=== PATIENT | female | born 1985 | race Caucasian/White ===

== ENCOUNTER 2021-12-04 10:43 | Emergency (ER) | payer OTHER, SELFPAY ==
[2021-12-04 11:14] VITALS: BP 126/79; PULSE 79; RESP 16; TEMP 37.1; O2SAT 97; BMI 21.1
--- NOTE | 2021-12-04 13:49 | ED.NURSE ---
Exam per Janny.
--- NOTE | 2021-12-04 17:05 | ED_ITS ---
HPI - Wound/Laceration General Date Seen: 12/04/21 Chief Complaint: Laceration/Wound Stated Complaint: Lac left index finger Time Seen by Provider: 12/04/21 13:31 Source: patient Mode of arrival: ambulatory Limitations: no limitations History of Present Illness HPI narrative: Patient is a very nice 36-year-old female who suffered a laceration to her non dominant hand, on her 2nd finger. This occurred while she was out working in [place]. She cut it with small knife. Was bleeding a fair bit so she thought she needs stitches she came in here to be seen. Her last tetanus was updated 6 years ago she has no other immunosuppressive illnesses or issues. Denies any numbness tingling or weakness associated with the common unfortunately due to the dizziness of the ER she had to wait 3 hours to be seen. Related Data Home Medications Medication Instructions Recorded Confirmed alprazolam 0.25 mg tablet (Xanax) 0.25 mg PO TID PRN 10/29/21 desogestrel 0.15 mg-ethinyl 1 tab PO QDAY 10/29/21 estradiol 0.03 mg tablet (Isibloom) Previous Rx's Medication Instructions Recorded bupropion HCl 300 mg 24 hr tablet, 300 mg PO QAM #30 tabs 10/05/21 extended release escitalopram oxalate 10 mg tablet 10 mg PO QDAY #30 tabs 11/29/21 (Lexapro) Allergies Allergy/AdvReac Type Severity Reaction Status Date / Time No Known Drug Allergies Allergy Verified 12/04/21 11:14 Review of Systems Status of ROS: Reports: 6 or more systems reviewed and unremarkable except as noted in History and below PFSH PFSH Social History Smoking Status: Never smoker Do you use any of these nicotine containing products: None Second hand tobacco smoke exposure: No How often do you have a drink containing alcohol: never How often do you have six or more drinks on one occasion: Never AUDIT-C Alcohol total score: 0 Non-prescribed substance use: denies use service: No Exam Narrative: Exam Narrative: On examination there is a flap-type laceration of approximately 3 cm located on lateral side or radial side of for left 2nd finger at the PIP joint. She is able to flex and extend her PIP joint through full range of motion, sensation distal this is normal as is cap refill. No other issue is noted. It was bleeding a fair bit. Blood pressure did stop this. Const: Vital Signs, click to edit/add: Vital Signs - 24 hr 12/04/21 11:14 Temperature 98.7 F Pulse Rate [Pulse Oximeter] 79 Respiratory Rate 16 Blood Pressure [Ri ght Upper Arm] 126/79 Pulse Oximetry 97 Oxygen Delivery Me thod Room Air Documenting provider has reviewed patient's vital signs: yes Course Vital Signs Vital signs: Initial Vital Signs Temperature 98.7 F 12/04/21 11:14 Temperature Source Temporal Artery Scan 12/04/21 11:14 Pulse Rate 79 12/04/21 11:14 Pulse Rhythm 12/04/21 11:14 Pulse Strength 3+ Normal 12/04/21 11:14 Respiratory Rate 16 12/04/21 11:14 Blood Pressure 126/79 12/04/21 11:14 Blood Pressure Mean 94 12/04/21 11:14 Blood Pressure Position Sitting 12/04/21 11:14 Pulse Oximetry 97 12/04/21 11:14 Oxygen Delivery Method 12/04/21 11:14 Vital Signs Temperature 98.7 F 12/04/21 11:14 Pulse Rate 79 12/04/21 11:14 Respiratory Rate 16 12/04/21 11:14 Blood Pressure 126/79 12/04/21 11:14 Pulse Oximetry 97 12/04/21 11:14 Oxygen Delivery Method 12/04/21 11:14 Temperature 98.7 F 12/04/21 11:14 Pulse Rate 79 12/04/21 11:14 Respiratory Rate 16 12/04/21 11:14 Blood Pressure 126/79 12/04/21 11:14 Pulse Oximetry 97 12/04/21 11:14 Oxygen Delivery Method 12/04/21 11:14 MDM - Wound/Laceration Differential Diagnosis Differential diagnosis: Likely laceration, abscess, abrasion and avulsion of skin Medical Records Attestation: I reviewed the patient's medical records. Lab Data Attestation: I reviewed the patient's lab results. Discharge Plan Discharge Clinical Impression: Laceration Patient Disposition: Home, Self-Care Condition: Improved Instructions: Finger Laceration (ED) Additional Instructions: Home, rest, use of splint for the next 3-4 days after the initial dressing comes off, bacitracin daily 2. I think daily bacitracin watching for signs infection or important, sutures should come out in 10 days, this can be done at her primary care clinic. There is 3 total stitches. Infection is redness, swelling, increasing pain, if this occurs, along with fever that he need to be seen, Prescriptions: No Action bupropion HCl 300 mg tablet extended release 24 hr 300 mg PO QAM Qty: 30 0RF desogestrel-ethinyl estradiol [Isibloom] 0.15-0.03 mg tablet 1 tab PO QDAY alprazolam [Xanax] 0.25 mg tablet 0.25 mg PO TID PRN escitalopram oxalate [Lexapro] 10 mg tablet 10 mg PO QDAY Qty: 30 0RF Follow Up/Referrals: Robbie Lewis MD [Primary Care Provider] - Stand Alone Forms: [facility] Info Instructions Procedures Laceration Laceration 1: Pre procedure diagnosis: Laceration till left 2nd finger Post procedure diagnosis: Laceration left 2nd finger Name of person performing procedure: Sam Soliman Site: hand Side (If applicable): left Size (cm): 3 Description: flap Depth: simple, single layer Local Anesthetic: lidocaine 1% Amount of anesthesia used (mL): 6 Pre-repair: wound explored, irrigated extensively and deep structures intact Skin layer closed with: nylon Size (cm): 4-0 Number of sutures: 3 Technique: simple, interrupted Wound cleansing: sterile water Estimated blood loss (if any): less than 5mls Conclusion: patient tolerated procedure
== END 2021-12-04 14:18 | disposition home or self-care (01) ==
PROVIDERS: Emergency Provider Family Medicine; PCP Family Medicine
DX: S61.211A Laceration without foreign body of left index finger without damage to nail, initial encounter (principal); W26.0XXA Contact with knife, initial encounter; Y93.89 Activity, other specified; Y92.73 Farm field as the place of occurrence of the external cause; Y99.9 Unspecified external cause status
CPT/HCPCS: 12002; 99283

== ENCOUNTER 2022-12-23 08:01 | Outpatient (CLI) | payer OTHER, SELFPAY ==
--- NOTE | 2022-12-23 08:15 | CRLHL7_ITS ---
For Patients: As a result of the Century Cures Act, medical imaging exams and procedure reports are released immediately into your electronic medical record. You may view this report before your referring provider. If you have questions, please contact your health care provider. INDICATION: First trimester scan, establish dates. COMPARISON: None. TECHNIQUE: Real-time banuelos-scale imaging of the pelvis was performed. FINDINGS: Sonographic imaging demonstrates a single living intrauterine gestation. The embryo demonstrates a regular cardiac rate measuring 174 beats per minute. The embryo`s crown-rump length measurement of 2.1 cm corresponds to a gestational age of 8 weeks 5 days with a sonographic due date of 07/30/2023. There is a normal-appearing yolk sac. There are no gross abnormalities noted within the embryo at this early state of development. The gestational sac has a normal appearance. There is a 1.8 x 0.5 x 1.1 cm perigestational hemorrhage. The amount of fluid within the sac appears appropriate for gestational age. The cervix is closed. Small anterior fibroid is present measuring 9 x 6 x 9 millimeters. The ovaries are of normal size. Corpus luteal cyst right ovary. There are no suspicious fluid collections noted in the cul-de-sac. IMPRESSION: Single living intrauterine with sonographic gestational age 8 weeks 5 days and sonographic due date of 07/30/2023. Left-sided subchorionic hemorrhage measures 1.8 x 0.5 x 1.1 cm. Dictated by Robbie Wilkerson MD @ 12/23/2022 9:26:06 AM (Electronically Signed)
== END 2022-12-23 08:02 | disposition home or self-care (01) ==
LOC: US 08:01
PROVIDERS: PCP Family Medicine; Visit Provider Advanced Practice Midwife
DX: O09.521 Supervision of elderly multigravida, first trimester (principal); Z3A.09 9 weeks gestation of pregnancy
CPT/HCPCS: 76817; 86592; 86703; 86704; 86706; 86762; 86787; 86803; 86850; 86900; 86901; 87086; 87340

== ENCOUNTER 2023-02-10 09:12 | Outpatient (CLI) | payer OTHER, SELFPAY | END 2023-02-10 09:13 | disposition home or self-care (01) | PROVIDERS: PCP Family Medicine; Visit Provider Advanced Practice Midwife | DX: Z34.92 Encounter for supervision of normal pregnancy, unspecified, second trimester (principal); Z3A.16 16 weeks gestation of pregnancy | CPT/HCPCS: 81511 ==

== ENCOUNTER 2023-03-10 15:46 | Outpatient (CLI) | payer OTHER, SELFPAY ==
[2023-03-10] VITALS (7 sets, daily range): BP systolic 111–164; BP diastolic 59–75; PULSE 87–102; RESP 18; TEMP 37.1; O2SAT 97–99
[2023-03-10] MEDS: LACTATED RINGERS 1000 ML 1,000 ML IV ×2 (16:25→17:34)
[2023-03-10] MEDS: ONDANSETRON 2 MG/ML inj 4 MG IVP (16:36)
[2023-03-10] MEDS: METOCLOPRAMIDE HCL 5 MG/ML INJ 10 MG IVP (18:01)
== END 2023-03-10 19:40 | disposition home or self-care (01) ==
LOC: OB OUT 15:46 → OB 15:47
PROVIDERS: PCP Family Medicine; Visit Provider Advanced Practice Midwife
DX: Z34.92 Encounter for supervision of normal pregnancy, unspecified, second trimester (principal); Z3A.20 20 weeks gestation of pregnancy
CPT/HCPCS: 99213; J2405; J2765; J7120

== ENCOUNTER 2023-05-06 08:46 | Outpatient (CLI) | payer OTHER, SELFPAY ==
--- OUTSIDE RECORDS SUMMARY | 2023-05-08 11:03 | XMS_ITS | Encounter Summary ---
Author Name Unknown Organization [facility] Address [address] [place] [id number] Care Team Providers Care Manager Product Name Role Phone Robbie Lewis MD Primary Care Provider Encounter Details Date Type Department Care Team (Latest Contact Info) Description 03/03/2023 Travel Social History Tobacco Use Types Packs/Day Years Used Date Smoking Tobacco: Never Assessed Adolescent Education Answer Date Record ed Getting School Help Needed Not on file 01/21 Estimated Date of Delivery Comme nts Yes 07/28/2023 Based on last me nstrual period of 10/21/2022 Sex and Gender Information Value Date Recorded Sex Assigned at Not on file Gender Identity Not on file Sexual Orientation Not on file documented as of this encounter Plan of Treatment Not on file documented as of this encounter Visit Diagnoses Not on filedocumented in this encounter Care Teams Manager Product Relationship Specialty Start Date End Date Robbie Lewis MD [facility] [address] [place] [address] PCP - General Family Medicine 01/21/23 documented as of this encounter
--- OUTSIDE RECORDS SUMMARY | 2023-05-08 11:03 | XMS_ITS | Encounter Summary ---
Author Name Unknown Organization [facility] Address [address] [place] [address] Care Team Providers Care Voice Writing Reporter Name Role Phone Robbie Lewis MD Primary Care Provider + [phone] Reason for Visit * Reason Comments Ultrasound L2-AMA Encounter Details Date Type Department Care Team (Late st Contact Info) Description 03/03/2023 10:45 AM CORRECTIONAL FACILITY PSYCHIATRIST Office Visit [facility] [place] [address] [place] [address] Ester Pryor APRN [facility] [address] [place] [address] Hortensia Mcdonald MD [address] [facility] [address] [place], [place] [id number] Choroid plexus cyst of fetus affecting care of mother, antepartum, single or unspecified fetus (Primary Dx); Multigravida of advanced maternal age in second trimester Social History Tobacco Use Types Packs/Day Years [...] on file documented as of this encounter Progress Notes * Hortensia Mcdonald MD - 03/03/2023 10:45 AM CST Please see Imaging tab under Chart Review for details of today's visit. Hortensia Mcdonald ECTIONAL FACILITY PSYCHIATRIST documented in this encounter Plan of Treatment Not on file documented as of this encounter Visit Diagnoses Diagnosis Choroid plexus cyst of fetus affecting care of mother, antepartum, single or unspecified fetus- Primary Multigravida of advanced maternal age in second trimester documented in this encounter Care Teams Voice Writing Reporter Relationship Specialty Start Date End Date Robbie Lewis MD [facility] [address] [address] PCP - General Family Medicine 01/21/23 documented as of this encounter
--- OUTSIDE RECORDS SUMMARY | 2023-05-08 11:03 | XMS_ITS | Clinical Summary ---
Author Name Unknown Organization [facility] Address [address] [place] [address] Care Team Providers Care Inner Tube Tuber Machine Operator Name Role Phone Robbie Lewis MD Primary Care Provider [phone] Encounters Date Type Department Care Team Description 03/03/2023 10:45 AM EQUIPMENT TECHNICIAN Office Visit [facility] [place] [address] [facility] [address] [place] [phone] Ester Macario APRN CNM Burn, Martina, MD Choroid plexus cyst of fetus affecting care of mother, antepartum, single or unspecified fetus (Primary Dx); Multigravida of advanced maternal age in second trimester 03/03/2023 10:15 AM EQUIPMENT TECHNICIAN - 03/03/2023 11:59 PM EQUIPMENT TECHNICIAN Hospital Encounter [facility] [address] [facility] [address] [place] [phone] Ester Macario APRN CNM Burn, Martina, MD related condition, antepartum Discharge Disposition: Home or Self Care 03/03/2023 Travel 02/24/2023 Travel 02/21/2023 PRE VISIT [facility] [address] [facility] [address] [place] [phone] Rosemary Rodriguez RN Ultrasound (L2-AMA) from Last 3 Months Social History Tobacco Use Types Packs/Day Years [...] on file Sexual Orientation Not on file Plan of Treatment Health Maintenance Due Date Last Done Comments ADVANCE CARE PLANNING 1986 ANNUAL REVIEW OF HM ORDERS 1986 GLUCOSE 1986 HEPATITIS B IMMUNIZATION (1 of 3 - 3-dose series) 1986 YEARLY PREVENTIVE VISIT 1986 HIV SCREENING 2001 HEPATITIS C SCREENING 2004 PAP 10/31/2007 DTAP/TDAP/TD IMMUNIZATION (1 - Tdap) 10/31/2011 MATERNAL SCREENING DISCUSSION 12/30/2022 PHQ-2 (once per calendar year) 2023 OBGCT (OB) 04/07/2023 INFLUENZA VACCINE Completed 12/23/2022, , 02/22/2021, Additional history exists COVID-19 Vaccine Completed 01/20/2023, , 07/19/2020, Additional history exists HPV IMMUNIZATION Aged Out No longer e ligible based on patient's age to complete this topic IPV IMMUNIZATION Aged Out No longer e ligible based on patient's age to complete this topic MENINGITIS IMMUNIZATION Aged Out No l onger eligible based on patient's age to complete this topic Pneumococcal Vaccine: Pediatrics (0 to 5 Years) and At-Risk Patients (6 to 64 Years) Aged Out No longer eligible based on patient's age to complete this topic RSV MONOCLONAL ANTIBODY Aged Out No l onger eligible based on patient's age to complete this topic RSV VACCINE ( & 60+) (No Doses Required) Completed Procedures Procedure Name Priority Date/Time Associated Diagnosis Comments [facility] US COMPREHENSIVE SINGLE Routine 03/03/2023 10:58 AM EQUIPMENT TECHNICIAN related condition, antepartum from Last 3 Months Results * [facility] US Comprehensive Single (03/03/2023 10:58 AM EQUIPMENT TECHNICIAN) Anatomical Region Laterality Modality Ultrasound 03/03/2023 10:1 9 AM EQUIPMENT TECHNICIAN Impressions 03/03/2023 11:43 AM EQUIPMENT TECHNICIAN IMPRESSION ----- 1. Newman intrauterine at 19w 0d gestational age here for evaluation of anatomy. 2. Right choroid plexus cyst was seen. 3. No anomalies commonly detected by ultrasound or other soft markers of aneuploidy were identified in the detailed anatomic survey within the limits of ultrasound. 4. Growth parameters and estimated weight were consistent with established dates. 5. The amniotic fluid volume appeared normal. 6. On transabdominal imaging the cervix appears long and closed. Narrative 03/03/2023 11:43 AM EQUIPMENT TECHNICIAN ?Comprehensive ----- Pat. Name: LORETO DIGGS ? Study Date: ??03/03/2023 10:19am Pat. NO: ??[id number] ?Referring ??: ESTER MACARIO Site: ??[facility] ? Print Cutter: Monisha Galarza RDMS : ??1985 ?Age: ?? 37 ----- INDICATION ----- Advanced Maternal Age--Multigravida. Low-risk NIPT METHOD ----- Transabdominal ultrasound examination. View: Sufficient ----- Newman . Number of fetuses: 1 DATING ----- ? Date ?Details ?Gest. age ?PATRICIA LMP ?10/21/2022 ?Cycle: regular cycle ?19 w + 0 d ? 07/28/2023 Prior assessment ? 12/23/2022 ? GA: 8 w + 5 d ?18 w + 5 d ? 07/30/2023 U/S ? 03/03/2023 ? based upon AC, BPD, Femur, HC ? 18 w + 6 d ? 07/29/2023 Assigned dating ?Dating performed on 03/03/2023, based on the LMP ? 19 w + 0 d ? 07/28/2023 GENERAL EVALUATION ----- Cardiac activity present. FHR 145 bpm. movements present. Presentation tranverse with head to maternal left. Placenta Bilobed placenta. Posterior with thin membrane connecting to the anterior placenta. Normal placental cord insertion into the posterior placenta. Umbilical cord Cord vessels: 3 vessel cord. Insertion site: normal insertion. Amniotic fluid Amount of AF: normal. MVP 3.7 cm. BIOMETRY ----- Main Biometry: BPD ?43.0 ?mm ? 19w 0d ?Hadlock OFD ?57.1 ?mm ? 18w 5d ?Nicolaides HC ?160.2 ?mm ?18w 6d ?Hadlock Cerebellum tr ?19.2 ? mm ?18w 4d ?Nicolaides AC ?141.0 ?mm ?19w 3d ?62% ?Hadlock Femur ?26.7 ? mm ?18w 1d ?Hadlock Humerus ?27.6 ?mm ? 18w 6d ?Lisandra Weight Calculation: EFW ? 261 ? g ? 37% ?Hadlock EFW (lb,oz) ? 0 lb 9 ?oz EFW by ?Hadlock ([id number]) Head / Face / Neck Biometry: Regional Flatbed Truck Driver ? 7.0 ? mm CM ?3.4 ? mm Nasal bone ? 5.8 ? mm Nuchal fold ? 3.8 ? mm ANATOMY ----- Head / Neck ? Right choroid plexus: cyst The following structures appear normal: Head / Neck ? Cranium. Head size. Head shape. Lateral ventricles. Midline falx. Cavum septi pellucidi. Cerebellum. Cisterna magna. Parenchyma. Thalami. ? Vermis. ? Neck. Nuchal fold. Face ? Lips. Profile. Nose. Maxilla. Mandible. Orbits. Lens. Heart / Thorax ?4-chamber view. RVOT view. LVOT view. Situs. Aortic arch view. Bicaval view. Ductal arch view. Superior vena cava. Inferior vena cava. 3-vessel ? view. 5-aelrfg-lbtheui view. Cardiac position. Cardiac size. Cardiac rhythm. ? Right lung. Left lung. Diaphragm. Abdomen ? Abdominal wall. Cord insertion. Stomach. Kidneys. Bladder. Liver. Bowel. Genitals. Spine ?Cervical spine. Thoracic spine. Lumbar spine. Sacral spine. Extremities / Skeleton ?Right arm. Right hand. Left arm. Left hand. Right leg. Right foot. Left leg. Left foot. Gender: male. MATERNAL STRUCTURES ----- Cervix ?Visualized ? Appearance: Appears Closed ? Approach - Transabdominal: Cervical length 40.8 mm Right Ovary ?Visualized Left Ovary ?Visualized RECOMMENDATION ----- Thank-you for referring your patient for a comprehensive ultrasound. I discussed the findings on today's ultrasound with the patient. I reviewed the limitations of ultrasound both in detecting aneuploidy and structural abnormalities. Ultrasound can routinely detect 80-90% of structural abnormalities. She had low risk cell free DNA for genetic screening this . I discussed that on today?s ultrasound a choroid plexus cyst (CEMENT SPRAYER HELPER) was noted. We discussed that CPCs are seen in 1-2% of all pregnancies in the second trimester and can be single or multiple, unilateral or bilateral and are often small (<1cm) in diameter. In the absence of other anatomic abnormalities or soft markers in conjunction with her low risk cell free DNA result this is considered to be a normal finding. Finally, we discussed that CPCs are not considered a structural or functional brain abnormality and therefore have no impact on structural brain development or function. Specifically, there is no association with neurodevelopmental outcomes. Almost all resolve by 28 weeks and they do not require any follow-up or postnatally. Further ultrasound studies as clinically indicated. Return to primary provider for continued care. If you have questions regarding today's evaluation or if we can be of further service, please contact the [facility]. anomalies may be present but not detected I spent a total of 15 minutes on the date of this encounter including preparing to see the patient (reviewing medical records/tests), counseling and discussing the plan of care, documenting the visit in the electronic medical record, and communicating with other health health care / medical job titles and/or care coordination. Procedure Note Hortensia Mcdonald MD - 03/03/2023 Comprehensive ----- Pat. Name: LORETO DIGGS Study Date: 03/03/2023 10:19am Pat. NO: [id number] Referring MD: ESTER MACARIO Site: [facility] Print Cutter: Monisha Galarza RDMS : 1985 Age: 37 ----- INDICATION ----- Advanced Maternal Age--Multigravida. Low-risk NIPT METHOD ----- Transabdominal ultrasound examination. View: Sufficient ----- Newman . Number of fetuses: 1 DATING ----- DateDetailsGest. age PATRICIA LMP 10/21/2022ycle: regular cycle19 w + 0 d 07/28/2023 Prior assessment 12/23/2022 GA: 8 w +5 d18 w + 5 d 07/30/2023 U/S 3based upon AC, BPD, Femur, HC18 w + 6 d 07/29/2023 Assigned dating Dating performed on 03/03/2023, based onthe LMP 19 w +0 d 07/28/2023 GENERAL EVALUATION ----- Cardiac activity present. FHR 145 bpm. movements present. Presentation tranverse with head to maternal left. Placenta Bilobed placenta. Posterior with thin membrane connecting to theanterior placenta. Normal placental cord insertion into the posteriorplacenta. Umbilical cord Cord vessels: 3 vessel cord. Insertion site: normalinsertion. Amniotic fluid Amount of AF: normal. MVP 3.7 cm. BIOMETRY ----- Main Biometry: BPD 43.0 mm19w 0d Hadlock OFD 57.1 mm18w 5d Nicolaides HC 160.2 mm18w 6d Hadlock Cerebellum tr 19.2 mm18w 4d Nicolaides AC 141.0 mm19w 3d 62% Hadlock Femur 26.7 mm18w 1d Hadlock Humerus 27.6 mm18w 6d Lisadnra Weight Calculation: EFW 261 g37% Hadlock EFW (lb,oz) 0 lb 9 oz EFW by Hadlock ([id number]) Head / Face / Neck Biometry: Regional Flatbed Truck Driver 7.0 mm CM 3.4 mm Nasal bone 5.8 mm Nuchal fold 3.8 mm ANATOMY ----- Head / Neck Right choroid plexus: cyst The following structures appear normal: Head / Neck Cranium. Head size. Head shape.Lateral ventricles. Midline falx. Cavum septi pellucidi. Cerebellum.Cisterna magna. Parenchyma. Thalami. Vermis. Neck. Nuchal fold. Face Lips. Profile. Nose. Maxilla.Mandible. Orbits. Lens. Heart / Thorax 4-chamber view. RVOT view. LVOT view.Situs. Aortic arch view. Bicaval view. Ductal arch view. Superior venacava. Inferior vena cava. 3-vessel view. 5-nmhvzh-vbolgtb view.Cardiac position. Cardiac size. Cardiac rhythm. Right lung. Left lung.Diaphragm. Abdomen Abdominal wall. Cord insertion.Stomach. Kidneys. Bladder. Liver. Bowel. Genitals. Spine Cervical spine. Thoracic spine.Lumbar spine. Sacral spine. Extremities / Skeleton Right arm. Right hand. Left arm. Lefthand. Right leg. Right foot. Left leg. Left foot. Gender: male. MATERNAL STRUCTURES ----- Cervix Visualized Appearance: Appears Closed Approach - Transabdominal:Cervical length 40.8 mm Right Ovary Visualized Left Ovary Visualized RECOMMENDATION ----- Thank-you for referring your patient for a comprehensive ultrasound. I discussed the findings on today's ultrasound with the patient. Ireviewed the limitations of ultrasound both in detecting aneuploidy andstructural abnormalities. Ultrasound can routinely detect 80-90% of structural abnormalities. She had low riskcell free DNA for genetic screening this . I discussed that on today?s ultrasound a choroid plexus cyst (CEMENT SPRAYER HELPER) wasnoted. We discussed that CPCs are seen in 1-2% of all pregnancies in thesecond trimester and can be single or multiple, unilateral or bilateral and are often small(<1cm) in diameter. In the absence of other anatomic abnormalities or softmarkers in conjunction with her low risk cell free DNA result this is considered to be a normalfinding. Finally, we discussed that CPCs are not considered a structuralor functional brain abnormality and therefore have no impact on structural brain developmentor function. Specifically, there is no association with neurodevelopmentaloutcomes. Almost all resolve by 28 weeks and they do not require any follow-up orpostnatally. Further ultrasound studies as clinically indicated. Return to primary provider for continued care. If you have questions regarding today's evaluation or if we can be offurther service, please contact the [facility]. anomalies may be present but not detected I spent a total of 15 minutes on the date of this encounter includingpreparing to see the patient (reviewing medical records/tests), counselingand discussing the plan of care, documenting the visit in the electronic medical record, andcommunicating with other health health care / medical job titles and/or carecoordination. IMPRESSION ----- 1. Newman intrauterine at 19w 0d gestational age here forevaluation of anatomy. 2. Right choroid plexus cyst was seen. 3. No anomalies commonly detected by ultrasound or other softmarkers of aneuploidy were identified in the detailed anatomicsurvey within the limits of ultrasound. 4. Growth parameters and estimated weight were consistent withestablished dates. 5. The amniotic fluid volume appeared normal. 6. On transabdominal imaging the cervix appears long and closed. Ester Macario APRN CNM IMG MFM US [facility] from Last 3 Months Care Teams Inner Tube Tuber Machine Operator Relationship Specialty Start Date End Date Robbie Lewis MD [facility] [address]. [place] [address] PCP - General Family Medicine 01/21/23
--- OUTSIDE RECORDS SUMMARY | 2023-05-08 11:03 | XMS_ITS | Encounter Summary ---
Author Name Unknown Organization [facility] Address [address] [place] [address] Care Team Providers Care Insurance Processor Name Role Phone Robbie Lewis MD Primary Care Provider + [phone] Reason for Visit * Reason Comments Ultrasound L2-AMA Encounter Details Date Type Department Care Team (Late st Contact Info) Description 02/21/2023 PRE VISIT [facility] Maternal Medicine Center [place] [address] [facility] [address] [place] [address] Rosemary Rodriguez, RN Ultrasound (L2-AMA) Social History Tobacco Use Types Packs/Day Years [...] on filedocumented in this encounter Care Teams Insurance Processor Relationship Specialty Start Date End Date Robbie Lewis MD [facility] [address] [address] PCP - General Family Medicine 01/21/23 documented as of this encounter
--- OUTSIDE RECORDS SUMMARY | 2023-05-08 11:03 | XMS_ITS | Encounter Summary ---
Author Name Unknown Organization [facility] Address [address] [place] [address] Care Team Providers Care Supervisor Heat Treating Name Role Phone Robbie Lewis MD Primary Care Provider Encounter Details Date Type Department Care Team (Latest Contact Info) Description 02/24/2023 Travel Social History Tobacco Use Types Packs/Day [...] on filedocumented in this encounter Care Teams Supervisor Heat Treating Relationship Specialty Start Date End Date Robbie Lewis MD [facility] [address] [place] [address] PCP - General Family Medicine 01/21/23 documented as of this encounter
--- OUTSIDE RECORDS SUMMARY | 2023-05-08 11:03 | XMS_ITS | Encounter Summary ---
Author Name Unknown Organization [facility] Address [address] [place] [address] Care Team Providers Care Roll Over Loader Name Role Phone Robbie Lewis MD Primary Care Provider + [phone] Reason for Referral * Diagnostic Imaging Ultrasound (Routine) - Pending Review Specialty Diagnoses / Procedures Referred By Contac t Referred To Contact Radiology. Diagnoses related condition, antepartum Procedures [facility] US Comprehensive Single Ester Macario APRN [facility] [address] [place] [address] Referral ID Status Reason Start Date Expiration Date V isits Requested Visits Authorized Pending Review 01/21/2023 01/21/2024 1 1 * Consultation (Routine: Next available opening) - Pending Review Specialty Diagnoses / Procedures Referred By Contac t Referred To Contact Diagnoses related condition, antepartum Ester Macario APRN [facility] [address] [place] [address] [facility] Maternal Med [address] [place] [address] Referral ID Status Reason Start Date Expiration Date V isits Requested Visits Authorized Pending Review 01/21/2023 01/21/2024 1 1 Question Answer Preferred Location: [facility] [place] PATRICIA 07/28/2023 Ultrasound Comprehensive US (>than 18 weeks GA) US PROC NONE MFM Issue Advanced Maternal Age *MUST request Genetic Counseling MFM MD Consultation (unrelated to Ultrasound findings): No Inflammatory Bowel Disease Clinic: Joint MFM and GI Consultation: No Chronic Kidney Disease: Joint MFM and Nephrology Consultation No Genetic Counseling Consultation: Yes fax Ester Macario, [facility], Comments There is no height or weight on file to calculate BMI. >> Patient may proceed with recommendations for further testing as directed by the Maternal Medicine Specialist >> >> If requesting Echo: MFM will determine appropriate location for exam due to indication. >> If requesting Lung Maturity Amnio: If results indicate lung maturity, induction or C/S is recommended within 36 hours. Please schedule accordingly. Please be aware that coverage of these services is subject to the terms and limitations of your health insurance plan. Call member services at your health plan with any benefit or coverage questions. Encounter Details Date Type Department Care Team (Latest Contact Info) Description 01/21/[address] [facility] Maternal Medicine Center [place] [address] [facility] [address] [place] [address] Ester Macario APRN CNM [facility] [address] [place] [address] related condition, antepartum (Primary Dx) Social History Tobacco Use Types Packs/Day Years Used Date Smoking Tobacco: Never Assessed Adolescent Education Answer Date Record ed Getting School Help Needed Not on file 01/21 Sex and Gender Information Value Date Recorded Sex Assigned at Not on file Gender Identity Not on file Sexual Orientation Not on file documented as of this encounter Plan of Treatment Scheduled Referrals Name Type Priority Associated Diagnoses Orde r Schedule [facility] Med Ctr Referral - Referral Routine: Next available opening related condition, antepartum Expected: 01/21/2023 (Approximate), Expires: 07/20/2023 documented as of this encounter Results * [facility] US Comprehensive Single (03/03/2023 10:58 AM MEDICAL PHYSICS RESEARCHER) Anatomical Region Laterality Modality Ultrasound 03/03/2023 10:1 9 AM MEDICAL PHYSICS RESEARCHER Impressions 03/03/2023 11:43 AM MEDICAL PHYSICS RESEARCHER IMPRESSION ----- 1. Newman intrauterine at 19w [...] long and closed. Narrative 03/03/2023 11:43 AM MEDICAL PHYSICS RESEARCHER ?Comprehensive ----- Pat. Name: LORETO DIGGS ? Study Date: ??03/03/2023 10:19am Pat. NO: ??[id number] ?Referring ??: ESTER MACARIO Site: ??[facility] ? Commercial Marketing Specialist: Monisha Galarza RDMS : ??1985 ?Age: ?? [...] 0 lb 9 ?oz EFW by ?Hadlock ([id number]) Head / Face / Neck Biometry: Personal Injury Legal Assistant ? 7.0 ? mm CM ?3.4 ? [...] cava. Inferior vena cava. 3-vessel ? view. 3-hslyhp-otiqdxq view. Cardiac position. Cardiac size. Cardiac rhythm. [...] on today?s ultrasound a choroid plexus cyst (HOME CARE ATTENDANT) was noted. We discussed that CPCs are [...] medical record, and communicating with other health rn managed care and/or care coordination. Procedure Note Hortensia Mcdonald MD - 03/03/2023 Comprehensive ----- Pat. Name: LORETO DIGGS Study Date: 03/03/2023 10:19am Pat. NO: [id number] Referring MD: ESTER MACARIO Site: [facility] Commercial Marketing Specialist: Monisha Galarza RDMS : 1985 Age: 37 ----- INDICATION ----- Advanced Maternal Age--Multigravida. Low-risk NIPT METHOD ----- Transabdominal ultrasound examination. View: Sufficient ----- Newman . Number of fetuses: 1 DATING ----- DateDetailsGest. age PATRICIA LMP 10/21/2022ycle: regular cycle19 w + 0 d 07/28/2023 Prior assessment 12/23/2022 GA: 8 w +5 d18 w + 5 d 07/30/2023 U/S 03/03/2023ased upon AC, BPD, Femur, HC18 w + [...] mm18w 1d Hadlock Humerus 27.6 mm18w 6d Lisandra Weight Calculation: EFW 261 g37% Hadlock EFW (lb,oz) 0 lb 9 oz EFW by Hadlock ([id number]) Head / Face / Neck Biometry: Personal Injury Legal Assistant 7.0 mm CM 3.4 mm Nasal bone [...] Superior venacava. Inferior vena cava. 3-vessel view. 1-foettl-gofvaic view.Cardiac position. Cardiac size. Cardiac rhythm. Right [...] on today?s ultrasound a choroid plexus cyst (HOME CARE ATTENDANT) wasnoted. We discussed that CPCs are seen [...] electronic medical record, andcommunicating with other health rn managed care and/or carecoordination. IMPRESSION ----- 1. Newman intrauterine [...] the cervix appears long and closed. Ester Konstantin COLEMAN CNM IMG [facility] US [facility] documented in this encounter Visit Diagnoses Diagnosis related condition, antepartum- Primary related condition, antepartum documented in this encounter Care Teams Roll Over Loader Relationship Specialty Start Date End Date Robbie Lewis MD [facility] [address]. [place] [address] PCP - General Family Medicine 01/21/23 documented as of this encounter
--- OUTSIDE RECORDS SUMMARY | 2023-05-08 11:03 | XMS_ITS | Referral Summary ---
Author Name Unknown Organization [facility] Address [address] [place] [address] Care Team Providers Care Administration Intern Name Role Phone Robbie Lewis MD Primary Care Provider [phone] Encounters Date Type Department Care Team Description 03/03/2023 Travel 03/03/2023 10:45 AM PAINT ROLLER ASSEMBLER Office Visit [facility] Maternal Medicine [place] [address] [place] [address] Ester Macario APRN CNM Burn, Martina, MD Choroid plexus cyst of fetus affecting care of mother, antepartum, single or unspecified fetus (Primary Dx); Multigravida of advanced maternal age in second trimester 03/03/2023 10:15 AM PAINT ROLLER ASSEMBLER - 03/03/2023 11:59 PM PAINT ROLLER ASSEMBLER Hospital Encounter [facility] Medicine [facility] [address] [facility] [address] [place] [address] Ester Macario APRN CNM Burn, Martina, MD related condition, antepartum Discharge Disposition: Home or Self Care 02/24/2023 Travel 02/21/2023 PRE VISIT [facility] Maternal Medicine [facility] [address] [place] [address] Rosemary Rodriguez RN Ultrasound (L2-AMA) from Last [...] Orientation Not on file Plan of Treatment Not on file Procedures Procedure Name Priority Date/Time Associated Diagnosis Comments [facility] US COMPREHENSIVE SINGLE Routine 03/03/2023 10:58 AM PAINT ROLLER ASSEMBLER related condition, antepartum from Last 3 Months Results * [facility] US Comprehensive Single (03/03/2023 10:58 AM PAINT ROLLER ASSEMBLER) Anatomical Region Laterality Modality Ultrasound 03/03/2023 10:1 9 AM PAINT ROLLER ASSEMBLER Impressions 03/03/2023 11:43 AM PAINT ROLLER ASSEMBLER IMPRESSION ----- 1. Newman intrauterine at 19w [...] long and closed. Narrative 03/03/2023 11:43 AM PAINT ROLLER ASSEMBLER ?Comprehensive ----- Pat. Name: LORETO DIGGS ? Study Date: ??03/03/2023 10:19am Pat. NO: ??[id number] ?Referring ??: ESTER MACARIO Site: ??[facility] ? Inventory Auditor: Monisha Galarza RDMS : ??1985 ?Age: ?? [...] 0 lb 9 ?oz EFW by ?Hadlock ([id number]) Head / Face / Neck Biometry: Environmental Maintenance Worker ? 7.0 ? mm CM ?3.4 ? [...] cava. Inferior vena cava. 3-vessel ? view. 8-ihbwfh-jcibwgt view. Cardiac position. Cardiac size. Cardiac rhythm. [...] on today?s ultrasound a choroid plexus cyst (DENTAL HYGIENIST MOBILE COORDINATOR) was noted. We discussed that CPCs are [...] medical record, and communicating with other health hospice patient care secretary and/or care coordination. Procedure Note Hortensia Mcdonald MD - 03/03/2023 Comprehensive ----- Raisa. Name: LORETO DIGGS Study Date: 03/03/2023 10:19am Pat. NO: [id number] Referring MD: ESTER MACARIO Site: [facility] Inventory Auditor: Monisha Galarza RDMS : 1985 Age: 37 [...] 0 lb 9 oz EFW by Hadlock ([id number]) Head / Face / Neck Biometry: Environmental Maintenance Worker 7.0 mm CM 3.4 mm Nasal bone [...] Superior venacava. Inferior vena cava. 3-vessel view. 7-yfajie-liizpmz view.Cardiac position. Cardiac size. Cardiac rhythm. Right [...] on today?s ultrasound a choroid plexus cyst (DENTAL HYGIENIST MOBILE COORDINATOR) wasnoted. We discussed that CPCs are seen [...] electronic medical record, andcommunicating with other health hospice patient care secretary and/or carecoordination. IMPRESSION ----- 1. Newman intrauterine [...] appears long and closed. Ester Macario APRN CNCheryle IMG [facility] US [place] GOODRICH from Last 3 Months Care Teams Administration Intern Relationship Specialty Start Date End Date Robbie Lewis MD [facility] [address] [place] [address] PCP - General Family Medicine 01/21/23
--- OUTSIDE RECORDS SUMMARY | 2023-05-08 11:03 | XMS_ITS | Encounter Summary ---
Author Name Unknown Organization [facility] Address [address] [place] [address] Care Team Providers Care Building Trades Instructor Name Role Phone Robbie Lewis MD Primary Care Provider + [phone] Reason for Referral * Diagnostic Imaging Ultrasound (Routine) - Pending Review Specialty Diagnoses / Procedures Referred By Contac t Referred To Contact Radiology. Diagnoses related condition, antepartum Procedures [facility] US Comprehensive [facility]N [facility] [address] [place] [address] Referral ID Status Reason Start Date Expiration Date V isits Requested Visits Authorized Pending Review 01/21/2023 01/21/2024 1 1 ITAL ADMINISTRATOR Reason for Visit * Diagnostic Imaging Ultrasound (Routine) - Pending Review Specialty Diagnoses / Procedures [facility] Referred To Contact Radiology. Diagnoses related condition, antepartum Procedures [facility] US Comprehensive [facility] [address] [place] [address] Referral ID Status Reason Start Date Expiration Date V isits Requested Visits Authorized Pending Review 01/21/2023 01/21/2024 1 1 Encounter Details Date Type Department Care Team (Latest Contact Info) Description 03/03/2023 10:15 AM HOSPITAL ADMINISTRATOR - 03/03/2023 11:59 PM HOSPITAL ADMINISTRATOR Hospital Encounter [facility] Maternal Medicine Center [place] [address] [address] [place] [address] Ester Macario APRN [facility] [address] [place] [address] Hortensia Mcdonald MD [address] [place], [place] [address] related condition, antepartum Discharge Disposition: Home or Self Care Social History Tobacco Use Types Packs/Day Years [...] on file documented as of this encounter Procedures Procedure Name Priority Date/Time Associated Diagnosis Comments [facility] US COMPREHENSIVE SINGLE Routine 03/03/2023 10:58 AM HOSPITAL ADMINISTRATOR related condition, antepartum documented in this encounter Results * [facility] US Comprehensive Single (03/03/2023 10:58 AM HOSPITAL ADMINISTRATOR) Anatomical Region Laterality Modality Ultrasound 03/03/2023 10:1 9 AM HOSPITAL ADMINISTRATOR Impressions 03/03/2023 11:43 AM HOSPITAL ADMINISTRATOR IMPRESSION ----- 1. Newman intrauterine at 19w [...] long and closed. Narrative 03/03/2023 11:43 AM HOSPITAL ADMINISTRATOR ?Comprehensive ----- Pat. Name: LORETO DIGGS ? Study Date: ??03/03/2023 10:19am Pat. NO: ??[id number] ?Referring ??MD: ESTER MACARIO Site: ??[facility] ? Social Problems Specialist: Monisha Galarza RDMS : ??1985 ?Age: [...] 0 lb 9 ?oz EFW by ?Hadlock ([id number]) Head / Face / Neck Biometry: Safety Risk Lead ? 7.0 ? mm CM ?3.4 ? [...] cava. Inferior vena cava. 3-vessel ? view. 6-fhbnys-jkoyebj view. Cardiac position. Cardiac size. Cardiac rhythm. [...] on today?s ultrasound a choroid plexus cyst (MEDICAL ASSISTANT DERMATOLOGY) was noted. We discussed that CPCs are [...] medical record, and communicating with other health foster care social worker and/or care coordination. Procedure Note Hortensia Mcdonald MD - 03/03/2023 Comprehensive ----- Pat. Name: LORETO DIGGS Study Date: 03/03/2023 10:19am Pat. NO: [id number] Referring MD: ESTER MACARIO Site: [facility] Social Problems Specialist: Monisha Galarza RDMS : 1985 Age: 37 ----- INDICATION ----- Advanced Maternal Age--Multigravida. Low-risk NIPT METHOD ----- Transabdominal ultrasound examination. View: Sufficient ----- Newman . Number of fetuses: 1 DATING ----- DateDetailsGest. age PATRICIA LMP 3Cycle: regular cycle19 w + 0 d 07/28/2023 [...] 0 lb 9 oz EFW by Hadlock ([id number]) Head / Face / Neck Biometry: Safety Risk Lead 7.0 mm CM 3.4 mm Nasal bone [...] Superior venacava. Inferior vena cava. 3-vessel view. 2-koabiy-zybttoy view.Cardiac position. Cardiac size. Cardiac rhythm. Right [...] on today?s ultrasound a choroid plexus cyst (MEDICAL ASSISTANT DERMATOLOGY) wasnoted. We discussed that CPCs are seen [...] electronic medical record, andcommunicating with other health foster care social worker and/or carecoordination. IMPRESSION ----- 1. Newman intrauterine [...] cervix appears long and closed. Ester Macario APRN, CNM IMRosalio [facility] US [place] GOODRICH documented in this encounter Visit Diagnoses Diagnosis related condition, antepartum documented in this encounter Care Teams Building Trades Instructor Relationship Specialty Start Date End Date Robbie Lewis MD [facility] [address] [address] PCP - General Family Medicine 01/21/23 documented as of this encounter
--- OUTSIDE RECORDS SUMMARY | 2023-05-08 11:03 | XMS_ITS | Encounter Summary ---
Author Name Unknown Organization [place] Address [address] [place] [address]. [place] [address] Care Team Providers Care Regional Account Director Name Role Phone Robbie Lewis MD Primary Care Provider [phone] Encounter Details Date Type Department Care Team (Late st Contact Info) Description 01/20/[address] [facility] Info Mgmt [facility] [address] [place] [address] Outside, Provider Social History Tobacco Use Types Packs/Day Years [...] on filedocumented in this encounter Care Teams Regional Account Director Relationship Specialty Start Date End Date Robbie Lewis MD [facility] [address] [place] [address] PCP - General Family Medicine 01/21/23 documented as of this encounter
== END 2023-05-06 08:47 | disposition home or self-care (01) ==
LOC: NFLDREF 05-08 10:59
PROVIDERS: PCP Family Medicine; Referring Provider Family Medicine; Visit Provider Obstetrics & Gynecology
DX: Z34.93 Encounter for supervision of normal pregnancy, unspecified, third trimester (principal); Z3A.28 28 weeks gestation of pregnancy
CPT/HCPCS: 86592

== ENCOUNTER 2023-06-10 16:48 | Emergency (ER) | payer OTHER, SELFPAY ==
[2023-06-10 16:55] VITALS: BP 98/74; PULSE 95; RESP 20; TEMP 37.1; O2SAT 98; BMI 26.3
--- NOTE | 2023-06-10 17:13 | ED.GENADULT ---
HPI - General Adult General Chief complaint: Rib Pain Stated complaint: Heart burn, rib pain, nausea 33wks preg Time Seen by Provider: 06/10/23 17:04 History of Present Illness HPI narrative: gr 2 p 1 edc . 33 weeks pg has been having left rib pain since Friday. feels that the pain is worsening. pain is more noticeable with certain movements. denies injury or any trauma. 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 has had hyperemesis. admits to having increased in heartburn symptoms. feels nauseated. feels that she is getting dehydrated. has had fluids in the past. 37-year-old woman presenting to the emergency department with concern of left low rib pain that has been going on over the last couple of days. Was diagnosed with influenza 10? Days ago and admittedly coughing a good deal but it sounds like that mostly settled. Noticed this after period of rest on the couch when she went to get up more intensely. Has escalated since. Worse with movements. It is pleuritic. Rotational movement in particular sounds to be painful. Has not had a fever. 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 She also has had a diagnosis of hyperemesis. Has had increased burning in the epigastrium. Generally nauseated. Has required fluid resuscitation in the past. Has not actually vomited today but does feel like she is probably getting dehydrated broadly due to the discomfort that she feels with any ingestion likely limiting that ingestion. She is at 33 weeks . No pain or swelling in her lower extremities. Regarding heartburn was just recommended to start famotidine and Gaviscon. Related Data Home Medications Medication Instructions Recorded Confirmed vits no.126-ferrous fum tab PO DAILY 12/23/22 06/03/23 28 mg iron-folic acid 800 mcg tablet (Classic ) Previous Rx's Medication Instructions Recorded bupropion HCl 300 mg 24 hr tablet, 300 mg PO QAM #90 tabs 12/27/22 extended release escitalopram oxalate 10 mg tablet 10 mg PO QDAY #90 tabs 12/27/22 (Lexapro) ondansetron HCl 4 mg tablet 4 mg PO Q8-12H PRN nausea and 04/08/23 vomiting #30 tabs ferrous sulfate 325 mg (65 mg 325 mg PO Q OTHER DAY #30 tabs 05/06/23 iron) tablet Allergies Allergy/AdvReac Type Severity Reaction Status Date / Time seasonal Allergy Mild congestion Uncoded 06/03/23 10:29 Review of Systems Status of ROS: Reports: 6 or more systems reviewed and unremarkable except as noted in History and below [facility] Medical History anxiety ?O99.345 - Other mental disorders complicating the puerperium (ICD-10) ?F41.8 - Other specified anxiety disorders (ICD-10) Seasonal allergies ?J30.2 - Other seasonal allergic rhinitis (ICD-10) History of seizure ?Z87.898 - Personal history of other specified conditions (ICD-10) Depression with anxiety ?F41.8 - Other specified anxiety disorders (ICD-10) Surgical History History of third molar tooth extraction ?K08.409 - Partial loss of teeth, unspecified cause, unspecified class (ICD-10) Family History Paternal Grandfather Heart disease Maternal Grandmother Ovarian cancer Paternal Grandmother Thyroid disease Father High cholesterol Depression Uncle Diabetes 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 Non-smoker Alcohol use: 1/month SOCIAL Work: [employer] Partner: Usman, teacher at [employer] Lives with: Nisa, (6) Pets: None Abuse: PAWAN Special Diet: Denies Ok with a blood transfusion: yes RISK FACTORS Exercise Times/wk: Not outside of work, very physical Depression/Anxiety: Hx of anxiety and depression; has a therapist Hx of undiagnosed pp depression MADELINE: 1 PHQ 9: 0 Seat Belt Use: Routinely Smoking: Denies past/present Alcohol/day: Denies while , occasionally prior to Caffeine: Cup of coffee Drug Use: Denies past/present Chicken Pox: Yes as a child MRSA: Denies What is your current living situation?: I presently have a place to live Problems where you live: no known problems In the past 12 months, utilities in danger of being shut off: no In past 12 months, lack of transportation kept you from medical appts, meetings, work, or getting things needed for daily living: no How hard is it for you to pay for the very basics like food, housing, medical care, and heating: not very hard In the past 12 mos, have been you worried that your food would run out before you had money to buy more?: never true In the past 12 mos, the food you bought just didn't last and you didn't have money to buy more?: never true Smoking Status: Never smoker Do you use any of these nicotine containing products: None Second hand tobacco smoke exposure: No How often do you have a drink containing alcohol: never How often do you have six or more drinks on one occasion: Never AUDIT-C Alcohol total score: 0 Non-prescribed substance use: denies use How often does anyone, including family, friends and others, physically hurt you: never How often does anyone, including family, friends and others, insult or talk down to you: never How often does anyone, including family, friends and others, threaten you with harm: never How often does anyone, including family, friends and others, scream or curse at you: never Little interest or pleasure in doing things: not at all Feeling down, depressed, or hopeless: not at all service: No Exam Narrative: Exam Narrative: Pleasant. NAD though clearly uncomfortable with movements that involve the trunk. Neck is supple. There is no supraclavicular crepitus. Lungs appear to be clear. Equal expansion and excursion. Heart in elevated rate but regular rhythm. No rub identified. Appropriately gravid. She is quite tender to palpation over the left low anterolateral and lateral ribs. I do not appreciate any indication of trauma/injury on the skin. Extremities are well perfused. Lower extremities are without edema and negative Homans. Oropharynx seems a little sticky. Const: Vital Signs, click to edit/add: Vital Signs - 24 hr 06/10/23 16:55 Temperature 98.8 F Pulse Rate [Pulse Oximeter] 95 Respiratory Rate 20 Blood Pressure [Ri ght Upper Arm] 98/74 Pulse Oximetry 98 Oxygen Delivery Me thod Room Air Documenting provider has reviewed patient's vital signs: yes Course Vital Signs Vital signs: Initial Vital Signs Temperature 98.8 F 06/10/23 16:55 Temperature Source Temporal Artery Scan 06/10/23 16:55 Pulse Rate 95 06/10/23 16:55 Pulse Rhythm Regular 06/10/23 16:55 Respiratory Rate 20 06/10/23 16:55 Blood Pressure 98/74 06/10/23 16:55 Blood Pressure Mean 82 06/10/23 16:55 Blood Pressure Position Supine 06/10/23 16:55 Pulse Oximetry 98 06/10/23 16:55 Oxygen Delivery Method Room Air 06/10/23 16:55 Vital Signs Temperature 98.8 F 06/10/23 16:55 Pulse Rate 95 06/10/23 16:55 Respiratory Rate 20 06/10/23 16:55 Blood Pressure 98/74 06/10/23 16:55 Pulse Oximetry 98 06/10/23 16:55 Oxygen Delivery Method Room Air 06/10/23 16:55 Temperature 98.8 F 06/10/23 16:55 Pulse Rate 95 06/10/23 16:55 Respiratory Rate 20 06/10/23 16:55 Blood Pressure 98/74 06/10/23 16:55 Pulse Oximetry 98 06/10/23 16:55 Oxygen Delivery Method Room Air 06/10/23 16:55 Medications Administered Medications: Discontinued Medications Generic Name Dose Route Start Last Admin Trade Name Freq PRN Reason Stop Dose Admin Sodium Chloride 1,000 mls @ 1,000 mls/hr 06/10/23 17:28 06/10/23 19:01 0.9 % Sodium Chloride 1000 Ml IV 06/10/23 18:27 Infused .Q1H ONE Infusion Lidocaine 1 patch 06/10/23 20:22 06/10/23 20:56 Lidocaine 5% Patch TRANSDERMA 06/10/23 20:23 1 patch ONCE ONE Administration Protocol Lidocaine HCl 7.5 ml 06/10/23 17:28 06/10/23 18:03 Lidocaine Hcl 4 % Top Soln 50 Ml Bottle PO 06/10/23 17:29 7.5 ml ONCE ONE Administration Lidocaine/Aluminum/Magnesium/Simeth 30 ml 06/10/23 17:28 06/10/23 18:03 Mag Hydrox/Aluminum Hyd/Simeth 30 Ml Oral.Susp PO 06/10/23 17:29 30 ml ONCE ONE Administration Ondansetron HCl 4 mg 06/10/23 17:28 06/10/23 18:03 Ondansetron 2 Mg/Ml Inj IVP 06/10/23 17:29 4 mg ONCE ONE Administration Medical Decision Making MDM Narrative Medical decision making narrative: Considering reproducibility of discomfort it does appear to be chest wall pain. Certainly could be costochondritis or perhaps she did strain something with all the coughing preceding this. Pulmonary embolus possibility as well though exam really suggests chest wall origin. Oxygen saturations are normal. Doubtful pneumonia; not actively coughing. Does not appear to be tachypneic or labored other than what one might expect with this degree of gravid uterus. Would offer IV fluids. Zofran and GI cocktail. Considering lidocaine, I did discuss treatment plan with OB. This is acceptable. Also did consult references including drugs in and as well as up-to-date. Given 1 L of normal saline. On reassessment is improved with symptoms of heartburn. Discussed also placement of lidocaine patch with OB. Also acceptable. This was placed prior to departure. Prior to this I had trialed an Kirk wrap/rib binder. This did improve her discomfort upon rotation. See patient discharge plan for further discussion Medical Records Medical records reviewed: Yes I reviewed the patient's medical records Discharge Plan Discharge Clinical Impression: Heartburn, Chest wall pain, Dehydration Patient Disposition: Home w/ Parent or Adult Condition: Improved Additional Instructions: Can continue with your Gaviscon and Pepcid. If this lidocaine patch works, they are available [id number] in you might consider using them temporarily. Would discuss this with your OB provider. You might also discuss use of topical NSAID creams. Otherwise of course can take up to 1000 mg of acetaminophen per dose every 4-6 hours; maximum 4000 mg in a day. Can wear this Kirk wrap for compression/binder if helpful. Remember though if using this to take a few deep breaths a few times daily to properly aerate your lungs. I will let you know if Radiology has anything more to say about your imaging/x-ray. Prescriptions: No Action ondansetron HCl 4 mg tablet 4 mg PO Q8-12H PRN (Reason: nausea and vomiting) Qty: 30 2RF Classic 28 mg iron- 800 mcg tablet PO DAILY ferrous sulfate 325 mg (65 mg iron) tablet 325 mg PO Q OTHER DAY Qty: 30 1RF Rx Instructions: Take one tablet every other day with Vitamin C or OJ. Avoid eating dairy for 1 hour after taking supplement. bupropion HCl 300 mg tablet extended release 24 hr 300 mg PO QAM Qty: 90 3RF escitalopram oxalate [Lexapro] 10 mg tablet 10 mg PO QDAY Qty: 90 3RF Follow Up/Referrals: Robbie Lewis MD [Primary Care Provider] - Stand Alone Forms: [employer] Info Instructions
[2023-06-10] MEDS: 0.9 % SODIUM CHLORIDE 1000 ml 1,000 ML IV (18:02)
[2023-06-10] MEDS: lidocaine HCL 4 % TOP SOLN 50 ML BOTTLE 7.5 ML PO (18:03)
[2023-06-10] MEDS: MAG HYDROX/ALUMINUM HYD/SIMETH 30 ML ORAL.SUSP PO (18:03)
[2023-06-10] MEDS: ONDANSETRON 2 MG/ML inj 4 MG IVP (18:03)
--- NOTE | 2023-06-10 19:12 | XR_ITS ---
Patient: LORETO LUIS Facility:?[facility] Patient ID:?[id number] Site Patient ID:?[id number]. Site :?1986 Study:?XRay-Chest RIBS WITH PA CHEST-06/10/2023 7:40:06 PM Ordering Physician:STU Final Report: INDICATION: Lower left anterior rib pain. COMPARISON: None. TECHNIQUE: PA chest and left ribs, 3 views. FINDINGS: No focal consolidation, pleural effusion, or pneumothorax. Normal heart size and pulmonary vascularity. There is an acute nondisplaced fracture of the left anterior 9th rib. IMPRESSION: 1. No acute cardiopulmonary findings. 2. Acute nondisplaced fracture of the left anterior 9th rib. Dictated by Olive Bah MD @ 06/10/2023 9:22:54 PM Signed by:?Olive Bah MD @06/10/2023 9:22:54 PM (Electronic Signature)
[2023-06-10] MEDS: LIDOCAINE 5% PATCH 1 PATCH TRANSDERMA (20:56)
== END 2023-06-10 21:12 | disposition home or self-care (01) ==
PROVIDERS: Emergency Provider Family Medicine; PCP Family Medicine
DX: R07.89 Other chest pain (principal); R12 Heartburn
CPT/HCPCS: 71101; 96374; 99284; A9270; J2405; J7030

== ENCOUNTER 2023-06-16 10:11 | Outpatient (CLI) | payer OTHER, SELFPAY | END 2023-06-16 10:12 | disposition home or self-care (01) | LOC: NFLDREF 06-18 06:00 | PROVIDERS: PCP Family Medicine; Referring Provider Family Medicine; Visit Provider Advanced Practice Midwife | DX: O09.523 Supervision of elderly multigravida, third trimester (principal); Z3A.34 34 weeks gestation of pregnancy | CPT/HCPCS: 82728 ==

== ENCOUNTER 2023-06-23 11:00 | Outpatient (RCR) | payer OTHER, SELFPAY | END 2023-09-15 15:15 | disposition home or self-care (01) | PROVIDERS: PCP Family Medicine; Visit Provider Advanced Practice Midwife | DX: N39.3 Stress incontinence (female) (male) (principal); N81.89 Other female genital prolapse; R10.2 Pelvic and perineal pain; R27.8 Other lack of coordination; Z51.89 Encounter for other specified aftercare | CPT/HCPCS: 97110; 97112; 97140; 97161; 97535 ==

== ENCOUNTER 2023-06-30 09:21 | Inpatient (IN) | payer OTHER, SELFPAY ==
[2023-06-30] VITALS (12 sets, daily range): BP systolic 110–137; BP diastolic 54–78; PULSE 85–105; RESP 16; TEMP 36.5–37; O2SAT 97
--- OUTSIDE RECORDS SUMMARY | 2023-06-30 09:20 | XMS_ITS | Clinical Summary ---
Author Name Unknown Organization [facility] Address [address] [place] [id number] Care Team Providers Care Thread Weaver Name Role Phone Robbie Lewis MD Primary Care Provider Social History Tobacco Use Types Packs/Day [...] REVIEW OF HM ORDERS 1986 GLUCOSE 1986 YEARLY PREVENTIVE VISIT 1986 HIV SCREENING 2001 HEPATITIS C SCREENING 2004 HEPATITIS B IMMUNIZATION (1 of 3 - 19+ 3-dose series) 2005 PAP 10/31/2007 DTAP/TDAP/TD IMMUNIZATION (1 - Tdap) [...] ( & 60+) (No Doses Required) Completed Care Teams Thread Weaver Relationship Specialty Start Date End Date Robbie Lewis MD [facility] [address] [address] PCP - General Family Medicine 01/21/23
--- OUTSIDE RECORDS SUMMARY | 2023-06-30 09:20 | XMS_ITS | Referral Summary ---
Author Name Unknown Organization [facility] Address [address] [place] [address] Care Team Providers Care Noc Technician Name Role Phone Robbie Lewis MD Primary Care Provider [phone] Social History Tobacco Use Types Packs/Day Years [...] file Plan of Treatment Not on file Care Teams Noc Technician Relationship Specialty Start Date End Date Robbie Lewis MD [facility] [address] [address] PCP - General Family Medicine 01/21/23
[2023-06-30 10:09] LABS: Amnisure Rom* POSITIVE
--- NOTE | 2023-06-30 10:25 | PM.OBHPLI ---
OB - H&P: HPI Labor/Induction History of Present Illness Date Seen: 06/30/23 Chief Complaint: Reza is a 37 year old 2 para 1 at 36 0/7 weeks gestation by LMP, who presents with PPROM of clear fluid at about 0645 am this morning. She has since then had increasing regular, painful contractions. She denies any bleeding. She endorses movement. She had an appointment tomorrow for a GAIL and was planning GBS swab then. She reports she did not really have any contractions prior to waking up and having the large gush of fluid. She continues to leak clear, pinkish discharge. She is supported by her , Usman. Chief complaint: Maternity : 2 Para: 1 Narrative: Reza Diggs is a 37 year old female Specific Issues/Plans : Usman Owns: [employer] 1. AMA Genetic screening: [id number] ordered: Neg Level II US: 03/03/2023 by [facility] [place]: Right Choroid plexus cyst. Ne anomalies seen. EFW 37%ile. AFP negative 2. 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 Depression and Anxiety Managed well with Lexapro and Wellbutrin Hx of pp depression, undiagnosed 4. 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 Left-sided subchorionic hemorrhage measures 1.8 x 0.5 x 1.1 cm. 6. Small fibroid 9x6x9 mm. 7. Nausea and vomiting. Taking Zofran. Ordered Compazine at 20wks. 8. Right Choroid plexus cyst on anatomy scan Per [facility], no follow-up required in or COVID: fully vaccinated, boosted x1, booster 01/20/2023 Flu: 12/23/2022 TDAP: 05/20/2023 32wk Mental Health: Mood Stable. MADELINE 0, PHQ 0 34wk Hgb: History of Present Dating criteria: based on LMP care: good care Ultrasounds: normal 1st trimester US and normal mid trimester US (Level II) Medical complications: none Labs Blood type: A (+) positive Review of Systems Status of ROS: Reports: 10 or more systems reviewed and unremarkable except as noted in History and below Meds Home Medications and Allergies Home Medications Medication Instructions Recorded Confirmed Type vits no.126-ferrous fum tab PO DAILY 12/23/22 06/16/23 History 28 mg iron-folic acid 800 mcg tablet (Classic ) Allergies Allergy/AdvReac Type Severity Reaction Status Date / Time seasonal Allergy Mild congestion Uncoded 06/16/23 09:29 OB - H&P: Exam Physical Exam: Vital signs: Temp Pulse Resp BP 98.1 F 98 16 119/66 06/30/23 09:49 06/30/23 09:49 06/30/23 09:49 06/30/23 09:49 Narrative: Vitals Reviewed Constitutional:? Alert and oriented x3 HEENT:? Normocephalic, atraumatic Neck:? Supple Lungs:? Clear to auscultation bilaterally Heart:? Regular rate and rhythm, no murmur, rub or gallop Abdomen:? Soft, nontender, and gravid. Vertex by Cali's, confirmed with cervical exam. Extremities:? No edema or erythema Cervix: 3-4 cm/70%/-1 station/vertex NST: 140 bpm/moderate variability/15x15 accelerations/no decelerations/contractions every 2-5, moderate/severe by palpation Constitutional: Constitutional: moderate distress OB - Problem Based A/P Additional Plan (1) premature rupture of membranes (PPROM) with onset of labor within 24 hours of rupture in third trimester, antepartum: Status: Acute (2) 36 weeks gestation of : Status: Acute (3) AMA (advanced maternal age) multigravida 35+: Status: Acute Plan ASSESSMENT:? 37 at 36 0/7 weeks gestation? 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 Category 1 FHR pattern.?? Labor complicated by: PPROM? GBS unknown? ? PLAN:? 1. Routine intrapartum cares as ordered. Continue with expectant management. Reviewed recommendation of Pitocin with PPROM if labor does not continue to progress. Patient reports understanding 2. Monitoring per policy, continuous?for 3. Planning unmedicated . NOT a candidate for water but is aware she can labor in the tub. Candidate for analgesia of choice if desired.?? 4. Patient encouraged to reposition and ambulate to promote physiologic labor and .? 5. GBS prophylaxis initiated for GBS unknown status. Will treat with antibiotics per protocol. 6. Reviewed status. Discussed plan of care with patient. Peds provider notified of patient admission, plan for them to attend delivery. Will notify Peds when closer to delivery. Recommend BMZ for status. Patient is aware of dosing and that she will likely not get 2nd dose. Reviewed presentation of 36 week newborns and possible needs for them at time of delivery or shortly after. 7. Anticipate ? Delivery/Labor/Induction Plan Plan: expectant management
[2023-06-30] MEDS: AMPICILLIN 2 GM in 0.9 % SODIUM CHLORIDE Mini-bag 100 ML IVPB (10:29)
[2023-06-30] MEDS: LACTATED RINGERS 1000 ML 1,000 ML 125 ML IV (10:29)
[2023-06-30] MEDS: BETAMETHASONE SOD PHOS/ACETATE 6 MG/ML ML 12 MG IM (10:31)
[2023-06-30 10:37] LABS: Basophils Absolute Auto 0.03 K/uL (0.00-0.30); Basophils Percent Auto 0.3 % (0.0-3.0); Eosinophils Absolute Auto 0.19 K/uL (0.00-0.50); Eosinophils Percent Auto 2.1 % (0.0-7.0); Hematocrit 32.7 % (33.0-51.0); Hemoglobin* 10.5 gm/dL (12.0-16.0); Immature Granulocytes Abs Auto 0.09 K/uL (0.00-0.30); Lymphocytes Percent Auto 11.5 % (20-44); Mean Corpuscular HGB Conc 32 gm/dL (32-36); Mean Corpuscular Hemoglobin 27 pg (26-34); Mean Corpuscular Volume 83 fL (80-100); Monocytes Percent Auto 6.9 % (0.0-11.0); Neutrophils Percent Auto 78.2 % (42.0-72.0); Platelet Count* 276 K/uL (140-440); RDW Coefficient of Variation % 13.4 % (11.5-15.5); Red Blood Count 3.95 m/uL (4.00-5.20); White Blood Count* 9.25 K/uL (4.50-11.00)
[2023-06-30 10:40] LABS: Slide Review Reflex No
[2023-06-30] MEDS: OXYTOCIN 10 UNIT/ML INJ IM (11:43)
--- NOTE | 2023-06-30 12:04 | W.PM.VAGDE_ITS ---
OB Procedure Vag Delivery Mother Details Mother Details: The patient is a 37 year-old, 2, Para 1, admitted on 06/30/2023 at 36 0/7 weeks gestation. : 2 Para: 1 Weeks Gestation: 36.0 Admission Date: 06/30/23 Additional Details Amniotic Membrane Status: SROM Amniotic Membrane Rupture Date: 06/30/23 Amniotic Membrane Rupture Time: 06:45 Amniotic Membrane Fluid Description: Clear Analgesia/Anesthesia Type: None Waterbirth: No Pitcoin: Yes ([facility] only) Intrapartal Events: Precipitous Labor <3 Hrs Labor Onset: 09:30 Complete: 11:28 Pushin:28 Heart: heart tones during second stage were difficlut to continuously trace due to maternal position and timing, but it remained reassuring. Delivery Details Delivery Date: 06/30/23 Delivery Time: 11:34 Route of delivery: Infant Gender: Male Infant Viability: Alive; Heart Rate Present Position at Delivery: OA Delivery Details: Patient was admitted for spontaneous rupture of membranes, . PPROM noted at 0645 with clear fluid. She progressed precipitously. Upon arrival to the unit, she was just starting to feel contractions that were becoming more regular and intense. She was breathing through them but they were tolerable. This quickly progressed to significant discomfort and feeling pressure with urge to push. Patient was assumed complete with pushing at 1128. of a viable male at 1134 in hands and knees position on the floor mat. Vertex delivered OA. No nuchal cord or shoulder. Body delivered easily and without incident. Infant passed to mothers abdomen with a weak cry. PAPER TESTING SUPERVISOR in attendance of delivery. Cord was clamped and cut at > 5 minutes. APGARS were 7 at one minute and 8 at five minutes respectively. Mouth was bulb suctioned. Intact placenta with a 3 vessel cord delivered spontaneously at 1142. Fundus firm. Intact perineum. QBL 200 cc. Mother and baby stable; mother plans to breastfeed. weight 6lb 9.5 oz. 1 Minute Interval Total Score: 7 5 Minute Interval Total Score: 8 Additional Details Shoulder Dystocia: No Placental Delivery Description: Spontaneous Procedure Done: Global Blood Loss: 200 Laceration: None Blood Loss Measurement Type: QBL Bakri Used: No Sponge/Need Count Correct: Yes Cord Vessel Description: 3 Vessels Event Summary Status: Mother and infant were stable after delivery. Disposition: floor
[2023-07-01 00:41] VITALS: BP 123/64; PULSE 99; RESP 16; TEMP 36.7; O2SAT 97
[2023-07-01 05:16] VITALS: BP 110/76; PULSE 86; RESP 18; TEMP 36.6; O2SAT 97
--- NOTE | 2023-07-01 07:44 | P.OBPN_ITS ---
OB - PN:Subj Subjective Date Seen: 07/01/23 Narrative: Reza is a 37 y.o. who was admitted to [facility] for labor.? She had an uncomplicated NVD.? ?? The patient feels well.? The pain is well controlled with current medications.? She has no new complaints.? She is breast feeding and reports things are going well.? the patient has done well.? Vitals have been stable.? She has remained afebrile.? Has a good appetite, is tolerating a general diet.? She is voiding without difficulty.? She is passing gas and has not yet had a bowel movement.? She is ambulating and denies any dizziness.? Has Small amount of rubra lochia.? OB - PN: Obj Exam Physical Exam: Vital signs: Temp Pulse Resp BP Pulse Ox O2 Del Method 97.8 F 86 18 110/76 97 Room Air 07/01/23 05:16 07/01/23 05:16 07/01/23 05:16 07/01/23 05:16 07/01/23 05:16 07/01/23 05:16 Narrative: GENERAL APPEARANCE:? normal affect, alert, no distress? MOOD:? appropriate? HEENT: normocephalic, neck supple, full ROM? CHEST:? Symmetrical chest wall movement.? Normal respiratory effort.? Clear to auscultation ? HEART:? regular rate and rhythm? ABDOMEN:? soft, non-tender. Uterine fundus is firm, at Umbilicus, Midline and is appropriate for the stage of recovery.? Bowel sounds present.? PERINEUM:? mild edema of the perineum, intact. EXTREMITIES:? normal and no edema? OB - PN: Obj Data Labs Labs: Laboratory Results - last 24 hr 06/30/23 06/30/23 09:27 10:28 WBC 9.25 RBC 3.95 L Hgb 10.5 L Hct 32.7 L MCV 83 MCH 27 MCHC 32 RDW Coeff of Mya 13.4 Plt Count 276 Neut % (Auto) 78.2 H Lymph % (Auto) 11.5 L [place] % (Auto) 6.9 Eos % (Auto) 2.1 Baso % (Auto) 0.3 Neut # (Auto) 7.20 H Lymph # (Auto) 1.10 [place] # (Auto) 0.60 Eos # (Auto) 0.19 Baso # (Auto) 0.03 Abs Immat Gran (auto) 0.09 Imm/Tot Granulo (auto) 1.0 Membrane Rupture POSITIVE Blood Type A Positive Antibody Screen NEGATIVE OB - PN: A/P Delivery Assessment and Plan (1) premature rupture of membranes (PPROM) with onset of labor within 24 hours of rupture in third trimester, antepartum: Status: Acute (2) 36 weeks gestation of : Status: Acute (3) AMA (advanced maternal age) multigravida 35+: Status: Acute (4) delivery: Status: Acute (5) care and examination immediately after delivery: Status: Acute (6) Lactating mother: Status: Acute Plan day: 1 Plan: routine care Comments: G 2 P 2 status post uncomplicated NVD??? 1.? Continue route PP cares? 2.? .? May see if desired? 3.? Anticipate discharge home tomorrow?
[2023-07-01 09:02] VITALS: BP 110/74; PULSE 97; RESP 16; TEMP 36.6; O2SAT 95
[2023-07-01] MEDS: DOCUSATE SODIUM 100 MG CAPSULE PO (09:17)
[2023-07-01 11:09] LABS: Strep B DNA Probe Negative (Negative)
[2023-07-01 11:14] LABS: Strep B Susceptibility Needed? No
--- OUTSIDE RECORDS SUMMARY | 2023-07-01 11:24 | XMS_ITS | Referral Summary ---
Author Name Unknown Organization [facility] Address [address] [place] [id number] Care Team Providers Care Reaming Machine Tender Name Role Phone Robbie Lewis MD Primary [...] of Treatment Not on file Care Teams Reaming Machine Tender Relationship Specialty Start Date End Date Robbie Lewis MD [facility] [address] [address] PCP - General Family Medicine 01/21/23
--- OUTSIDE RECORDS SUMMARY | 2023-07-01 11:24 | XMS_ITS | Clinical Summary ---
Author Name Unknown Organization [facility] Address [address] [place] [id number] Care Team Providers Care Metal Window Screen Assembler Name Role Phone Robbie Lewis MD Primary [...] per calendar year) 2023 OBGCT (OB) 04/07/2023 GROUP B STREP SCREENING 06/30/2023 INFLUENZA VACCINE Completed 12/23/2022, , 02/22/2021, Additional [...] 60+) (No Doses Required) Completed Care Teams Metal Window Screen Assembler Relationship Specialty Start Date End Date Robbie Lewis MD [facility] [address] [place] [address] PCP - General Family Medicine 01/21/23
[2023-07-01 12:40] VITALS: BP 115/77; PULSE 91; RESP 16; TEMP 36.6; O2SAT 97
[2023-07-01 16:58] VITALS: BP 128/76; PULSE 87; RESP 16; TEMP 36.7; O2SAT 98
[2023-07-01 19:20] LABS: Rapid Plasma Reagin (RPR) Non Reactive (Non Reactive)
[2023-07-02 00:22] VITALS: BP 120/71; PULSE 87; RESP 16; TEMP 36.6
--- NOTE | 2023-07-02 07:20 | PM.OBDSVD1 ---
DS: Providers Provider Time Seen by Provider: 07:20 Date Seen: 07/02/23 Date of admission: 06/30/23 09:21 Primary care physician: Robbie Lewis MD Admitting Clinician: Ester Pryor CNM Attending Physician on discharge: Ester Pryor CNM Date of Discharge: 07/02/23 DS: Diagnosis Discharge Diagnosis (1) care and examination immediately after delivery: Status: Acute (2) delivery: Status: Acute (3) NVD (normal vaginal delivery): Status: Acute (4) Lactating mother: Status: Acute Exam Narrative: Exam Narrative: VSS, afebrile GENERAL APPEARANCE: ?normal affect, alert, no distress MOOD: ?appropriate HEENT: normocephalic, neck supple, full ROM CHEST: ?Symmetrical chest wall movement. ?Normal respiratory effort. ?Clear to auscultation HEART: ?regular rate and rhythm ABDOMEN: ?soft, non-tender. Uterine fundus is firm, 1 below Umbilicus, Midline and is appropriate for the stage of recovery. ?Bowel sounds present. PERINEUM: ?mild edema of the perineum, there is no laceration, perineum healing well. EXTREMITIES: ?normal and no edema Const: Vital Signs, click to edit/add: Vital Signs - 24 hr 07/01/23 09:02 07/01/23 12:40 07/01/23 16:58 Temperature 97.9 F 97.8 F 98.1 F Pulse Rate [Pulse Oximeter] 97 91 87 Respiratory Rate 16 16 16 Blood Pressure [Le ft Arm] 110/74 115/77 128/76 Pulse Oximetry 95 97 98 Oxygen Delivery Me thod Room Air Room Air Room Air 07/02/23 00:22 Temperature 97.9 F Pulse Rate [Pulse Oximeter] 87 Respiratory Rate 16 Blood Pressure [Le ft Arm] 120/71 Pulse Oximetry Oxygen Delivery Me thod Room Air Documenting provider has reviewed patient's vital signs: yes OB - DS: Summary Hospital Course Hospital Course: Reza is a 37 y.o. G 2 P 2 who was admitted to [facility] for labor. ?She had an uncomplicated NVD The patient feels well. ?The pain is well controlled with current medications. ?She has no new complaints. ?She is breast feeding and reports baby has been a little sleepy. She is pumping and bottle feeding as needed.? the patient has done well.? Vitals have been stable.? She has remained afebrile.? Has a good appetite, is tolerating a general diet. ?She is voiding without difficulty.? She is passing gas and has had a bowel movement.? She is ambulating and denies any dizziness.? Has Small amount of rubra lochia. She is planning mini pill for prevention. Problems: none plan: Discharge home with baby. Follow up in 2 weeks and 6 weeks. , may follow up with if needed Peripartum Data Infant delivery method: Vaginal Laceration description: None Gender: Male Infant Discharge Plan: Home Status at Discharge Functional status at discharge: independent ambulation Overall status at discharge: patient is progressing back to baseline Time Spent with Patient Time attestation: Total time spent providing and/or coordinating discharge services: Time spent: Less than 30 minutes Discharge Plan Discharge Disposition: Home, Self-Care Date of Admission: 06/30/23 09:21 Primary Care Provider: Robbie Lewis Condition: Stable Anticipated Discharge Date/Time: 07/02/23 14:00 Discharge Medications: New docusate sodium 100 mg Capsule 100 mg PO BID PRNQty: 100 0RF Rx Instructions: Take 1 capsule 1-2 times a day as needed for constipation ibuprofen 600 mg Tablet 600 mg PO Q6H PRNQty: 60 0RF Continued omeprazole 20 mg capsule,delayed release(DR/EC) 20 mg PO QDAY Qty: 60 1RF Classic 28 mg iron- 800 mcg tablet PO DAILY bupropion HCl 300 mg tablet extended release 24 hr 300 mg PO QAM Qty: 90 3RF escitalopram oxalate [Lexapro] 10 mg tablet 10 mg PO QDAY Qty: 90 3RF Discontinued ondansetron HCl 4 mg tablet 4 mg PO Q8-12H PRN (Reason: nausea and vomiting) Qty: 30 2RF ferrous sulfate 325 mg (65 mg iron) tablet 325 mg PO Q OTHER DAY Qty: 30 1RF Hold Instructions: Doctor's Order Rx Instructions: Take one tablet every other day with Vitamin C or OJ. Avoid eating dairy for 1 hour after taking supplement. Discharge Orders: Discharge Order (Routine); Ordered 07/02/23 Ordered By: Kelli Mike Patient Education: OB Over the Counter Medication Information, OB Vaginal/Breast Feeding Additional Instructions: Follow up in 2 weeks and 6 weeks in the clinic Activity Level: Activity as Tolerated Discharge Diet: Regular Follow Up Appointments: Robbie Lewis MD [Primary Care Provider] - Forms: [employer] Info Instructions
[2023-07-02] MEDS: DOCUSATE SODIUM 100 MG CAPSULE PO (08:02)
[2023-07-02 10:19] VITALS: BP 118/72; PULSE 84; RESP 16; TEMP 36.6
== END 2023-07-02 14:40 | disposition home or self-care (01) | DRG 806 ==
LOC: OB OUT 12:09 → OB 07-01 08:12
PROVIDERS: Admitting Provider Advanced Practice Midwife; PCP Family Medicine; Visit Provider Advanced Practice Midwife
DX: O60.14X0 Preterm labor third trimester with preterm delivery third trimester, not applicable or unspecified (principal); O99.834 Other infection carrier state complicating childbirth; Z37.0 Single live birth; Z3A.36 36 weeks gestation of pregnancy; O99.344 Other mental disorders complicating childbirth; F32.A Depression, unspecified; F41.8 Other specified anxiety disorders; Z14.8 Genetic carrier of other disease; O21.2 Late vomiting of pregnancy
CPT/HCPCS: 36415; 84112; 85025; 86592; 86850; 86900; 86901; 87081; 87653; 88307; G0463; A9270; J0290; J0702; J2590; J7120

== ENCOUNTER 2024-10-21 13:30 | Outpatient (CLI) | payer BC, SELFPAY ==
[2024-10-23 08:46] LABS: HPV Source Cervical
[2024-10-27 09:03] LABS: Pap Test Digital Imaging Done
== END 2024-10-21 13:31 | disposition home or self-care (01) ==
PROVIDERS: PCP Family Medicine; Visit Provider Advanced Practice Midwife
DX: Z34.83 Encounter for supervision of other normal pregnancy, third trimester (principal)
CPT/HCPCS: 80061; 87624; 87625; 88141; 88142; 88175